=== PATIENT | female | born 1935 | race Caucasian/White ===

== ENCOUNTER → 2020-01-30 | Outpatient (CLI) | payer BC | LOC: M.ULTRA 07:13 | PROVIDERS: ATTEND Family Medicine | DX: K76.0 Fatty (change of) liver, not elsewhere classified (principal); K80.20 Calculus of gallbladder without cholecystitis without obstruction ==

== ENCOUNTER 2020-08-13 16:03 | Inpatient (IN) | payer BC ==
[~2020-08-13] VITALS: Ht 162.6 cm; Wt 59.1 kg
--- NOTE | ~2020-08-13 | OP ---
[facility] [address] [place] [address] OPERATIVE REPORT Name: RUSTY SOTOMAYOR Kwame Room: [address] IN M.R.#: [id number] Admission: 08/13/20 Attend Phys: Mihai Al Discharge: Date of : 35 Report #: [id number] THIS REPORT FOR: cc: Naun Hernandez Steve T. DO ~ Patterson, Jonathan D. MD DATE OF SERVICE: 08/15/2020 PREOPERATIVE DIAGNOSIS: Choledocholithiasis with acute cholecystitis. POSTOPERATIVE DIAGNOSIS: Choledocholithiasis with acute cholecystitis. OPERATION: Diagnostic laparoscopy. SURGEON: Efra Lawrence MD ANESTHESIA: General. ESTIMATED BLOOD LOSS: Minimal. SPECIMEN: None. DESCRIPTION OF PROCEDURE: After informed consent was obtained, the patient was brought to the operating room and placed supine. SCDs were placed and working, preoperative antibiotics were administered, general anesthesia was induced. The abdomen was prepped and draped in the usual sterile fashion. A 10 mm incision was made below the umbilicus. Fascia was incised and a trocar was placed. Pneumoperitoneum was established. Three right upper quadrant 5 mm ports were placed. The right upper quadrant was examined. The omentum was plastered to the gallbladder completely. I did use the LigaSure device to peel away some of the omentum. This revealed a very scarred and inflamed gallbladder. I attempted dissection in the triangle of [place]; however, this was so scarred that I did not think it would be safe to do so. Therefore, the gallbladder was left in place. The ports were removed under direct vision. The fascia was closed with a [id number] 0 Vicryl. Skin was closed with 4-0 Monocryl. Incisions were dressed with Steri-Strips. COMPLICATIONS: None. By: [id number] Lawrence MD /beverly
--- NOTE | ~2020-08-13 | PROC ---
[address] [address] PROCEDURE REPORT Name: RUSTY SOTOMAYOR Room: [address] IN M.R.#: [id number] Admission: 08/13/20 Attend Phys: Mihai Al Discharge: 08/17/20 Date of : 35 Report #: [id number] THIS REPORT FOR: cc: Naun Hernandez Steve T. DO ~ [facility],Medical Records Staff For GI report, please see the Provation report in Perceptive 7 content. By: [id number] Records Staff [facility] /PEGGY
[2020-08-13 16:22] VITALS: BP 137/84
[2020-08-13] MEDS ORDERED: LISINOPRIL-HCT1 EACH PO (16:26)
[2020-08-13] MEDS ORDERED: ZOCOR 10 MG TAB10 MG PO (16:26)
[2020-08-13 17:21] LABS: ABSOLUTE LYMPHOCYTES 0.8 thou/uL (0.8-5.3); ABSOLUTE NEUTROPHILS 10.8 thou/uL (1.6-8.1); RBC 3.64 mil/uL (4.20-5.00); RDW-CV 14.2 % (10.5-14.5)
[2020-08-13 17:26] LABS: ABSOLUTE BASOPHILS 0.1 thou/uL (0.0-0.2); ABSOLUTE EOSINOPHILS 0.1 thou/uL (0.0-0.7); ABSOLUTE MONOCYTES 1.4 thou/uL (0.0-1.2); BASOPHILS 0.8 %; EOSINOPHILS 0.4 %; HEMATOCRIT 34.3 % (37.0-47.0); HEMOGLOBIN 11.4 gm/dL (12.0-15.0); MCH 31.2 pg (26.0-34.0); MCHC 33.1 g/dL (28.0-37.0); MCV 94.2 fL (80.0-100.0); MONOCYTES 10.3 %; MPV 8.4 fl. (7.2-11.1); NUCLEATED RBCS 0 /100WBC; PLATELET COUNT* 338 thou/uL (150-400); POLYS 82.5 %; WBC 13.1 thou/uL (4.0-11.0)
[2020-08-13 17:27] LABS: CALCIUM 10.1 mg/dL (8.5-10.1); CREATININE 1.2 mg/dL (0.6-1.3); POTASSIUM 3.4 mmol/L (3.5-5.1)
[2020-08-13 17:31] LABS: APTT 25.6 Seconds (25.0-31.3); PROTIME 10.9 Seconds (9.20-11.50)
[2020-08-13 17:32] LABS: ALBUMIN 3.2 g/dL (3.4-5.0); DIRECT BILIRUBIN 5.6 mg/dL (<0.1-0.3); TOTAL BILIRUBIN 7.3 mg/dL (<0.1-1.0); TOTAL PROTEIN 7.9 g/dL (6.4-8.2)
[2020-08-13 21:00] VITALS: BP 122/56
[2020-08-13 21:59] LABS: URINE BLOOD TRACE (Negative); URINE CLARITY CLEAR; URINE COLOR DARK YELLOW; URINE GLUCOSE-RANDOM NEGATIVE (Negative); URINE KETONES 2+ (Negative); URINE LEUKOCYTES-REFLEX NEGATIVE (Negative); URINE PROTEIN 2+ (Negative); URINE SPECIFIC GRAVITY <= 1.005 (1.005-1.030)
[2020-08-13 22:01] LABS: ICTOTEST (BILI CONFIRMATORY) Positive (Negative); URINE BILIRUBIN 2+ (Negative); URINE NITRITE-REFLEX POSITIVE (Negative)
[2020-08-13 22:09] LABS: HYALINE CASTS 0-3 Few /LPF (None Seen); MUCUS None Seen strn/LPF (None Seen); SQUAMOUS 0-3 Few /LPF (0-3); URINE WBC-REFLEX 0-5 Rare /HPF (0-5)
[2020-08-13 22:10] LABS: BACTERIA-REFLEX 1-9 Few /HPF (None Seen); URINE RBC 0-2 Rare /HPF (0-2)
[2020-08-13 22:11] LABS: CRYSTALS None Seen /LPF (None Seen)
[2020-08-14 00:49] VITALS: BP 135/52
[2020-08-14 04:56] VITALS: BP 106/45
[2020-08-14 05:10] LABS: ABSOLUTE EOSINOPHILS 0.1 thou/uL (0.0-0.7); ABSOLUTE LYMPHOCYTES 0.8 thou/uL (0.8-5.3); ABSOLUTE MONOCYTES 1.2 thou/uL (0.0-1.2); ABSOLUTE NEUTROPHILS 6.8 thou/uL (1.6-8.1); BASOPHILS 0.3 %; EOSINOPHILS 0.7 %; HEMATOCRIT 26.7 % (37.0-47.0); LYMPHOCYTES 9.2 %; MCH 31.7 pg (26.0-34.0); MCHC 34.1 g/dL (28.0-37.0); MONOCYTES 13.6 %; MPV 7.7 fl. (7.2-11.1); NUCLEATED RBCS 0 /100WBC; POLYS 76.2 %; RBC 2.87 mil/uL (4.20-5.00); RDW-CV 13.9 % (10.5-14.5); WBC 8.9 thou/uL (4.0-11.0)
[2020-08-14 05:17] LABS: HEMOGLOBIN 9.1 gm/dL (12.0-15.0); PLATELET COUNT* 258 thou/uL (150-400)
[2020-08-14 05:30] LABS: ALBUMIN 2.4 g/dL (3.4-5.0); CREATININE 0.9 mg/dL (0.6-1.3); POTASSIUM 3.1 mmol/L (3.5-5.1); TOTAL BILIRUBIN 6.2 mg/dL (<0.1-1.0); TOTAL PROTEIN 6.1 g/dL (6.4-8.2)
[2020-08-14 05:41] LABS: CALCIUM 7.7 mg/dL (8.5-10.1)
[2020-08-14 05:50] LABS: % SATURATION 17 % (20-39); IRON 27 ug/dL (50-175)
[2020-08-14 06:46] LABS: ESR (SEDRATE) 110 mm/hr (0-30)
[2020-08-14 09:00] VITALS: BP 127/63
[2020-08-14 09:22] VITALS: BP 123/61
--- NOTE | 2020-08-14 09:40 | EKG ---
[place] [address] ELECTROCARDIOGRAM REPORT Name: RUSTY SOTOMAYOR Room: [place] [address] ADM IN ..#: [id number] Admission: 08/13/20 Attend Phys: Randal Nicole Discharge: Date of : 35 Date of Service: 08/13/20 1721 Report #: [id number] THIS REPORT FOR: //name// [facility] ED Test Date: 2020-08-13 Test Time: 17:21:50 Pat Name: RUSTY SOTOMAYOR Department: Room: [facility] Gender: F Home Care Specialist: AMERICO : 1935 Requested By: Laura Scott Order Number: [id number] MD: Reid Cuevas Measurements Intervals [place] Rate: 113 P: 58 VT: 140 QRS: -10 QRSD: 93 T: 42 QT: 301 QTc: 413 Interpretive Statements Sinus tachycardia Abnormal R-wave progression, early transition Possible inferior scar Baseline wander in lead(s) V4 No previous ECG available for comparison Electronically Signed On 08-14-2020 9:40:38 INTERPRETER DEAF by Reid Cuevas [email or web address] <ELECTRONICALLY SIGNED> By: Reid Cuevas MD, [facility] 08/14/20 0940 172 172 Reid Cuevas MD, [facility] /EPI
[2020-08-14 20:00] VITALS: BP 135/69
[2020-08-14 22:06] LABS: HEPATITIS B SURFACE AG Negative (Negative)
[2020-08-15] VITALS: BP 123/57
[2020-08-15 05:05] LABS: ABSOLUTE BASOPHILS 0.1 thou/uL (0.0-0.2); ABSOLUTE LYMPHOCYTES 0.7 thou/uL (0.8-5.3); ABSOLUTE MONOCYTES 0.7 thou/uL (0.0-1.2); ABSOLUTE NEUTROPHILS 6.1 thou/uL (1.6-8.1); BASOPHILS 0.7 %; EOSINOPHILS 0.1 %; HEMATOCRIT 26.1 % (37.0-47.0); LYMPHOCYTES 9.8 %; MCH 31.9 pg (26.0-34.0); MCHC 34.4 g/dL (28.0-37.0); MCV 92.8 fL (80.0-100.0); MONOCYTES 9.3 %; NUCLEATED RBCS 0 /100WBC; PLATELET COUNT* 294 thou/uL (150-400); POLYS 80.1 %; RBC 2.81 mil/uL (4.20-5.00); WBC 7.6 thou/uL (4.0-11.0)
[2020-08-15 06:02] LABS: ALBUMIN 2.4 g/dL (3.4-5.0); CALCIUM 8.5 mg/dL (8.5-10.1); POTASSIUM 3.2 mmol/L (3.5-5.1); TOTAL BILIRUBIN 3.6 mg/dL (<0.1-1.0); TOTAL PROTEIN 6.6 g/dL (6.4-8.2)
[2020-08-15 07:20] VITALS: BP 122/59
--- NOTE | 2020-08-15 13:14 | NUR ---
CM ATTEMPTED TO SPEAK TO THE PT TO DISCUSS CM ASSESSMENT. PT RESTING WITH EYES CLOSED SHE HAD JUST RETURNED FROM HER PROCEDURE. PT'S DTR AT THE BEDSIDE AND AGREES TO ASSIST WITH CM ASSESSMENT. PT NORMALLY INDEPENDENT WITH ADL'S, ACTIVE AND DRIVES. PT OWNS A WALKER, BUT DOES NOT USUALLY USE IT. PT HAS 0 HX OF HH OR SNF. CM WILL REMAIN AVAILABLE TO ASSIST AND FOLLOW NEEDED.
[2020-08-15 20:00] VITALS: BP 120/64
[2020-08-15 23:55] VITALS: BP 112/60
[2020-08-16 05:22] LABS: ABSOLUTE LYMPHOCYTES 1.1 thou/uL (0.8-5.3); ABSOLUTE MONOCYTES 0.9 thou/uL (0.0-1.2); ABSOLUTE NEUTROPHILS 6.3 thou/uL (1.6-8.1); BASOPHILS 0.5 %; EOSINOPHILS 0.2 %; HEMATOCRIT 25.4 % (37.0-47.0); HEMOGLOBIN 8.7 gm/dL (12.0-15.0); LYMPHOCYTES 13.7 %; MCH 31.9 pg (26.0-34.0); MCHC 34.2 g/dL (28.0-37.0); MCV 93.3 fL (80.0-100.0); MONOCYTES 10.3 %; MPV 8.1 fl. (7.2-11.1); NUCLEATED RBCS 0 /100WBC; PLATELET COUNT* 310 thou/uL (150-400); POLYS 75.3 %; RBC 2.72 mil/uL (4.20-5.00); RDW-CV 14.2 % (10.5-14.5); WBC 8.4 thou/uL (4.0-11.0)
[2020-08-16 05:50] LABS: ALBUMIN 2.2 g/dL (3.4-5.0); CALCIUM 7.8 mg/dL (8.5-10.1); TOTAL BILIRUBIN 1.5 mg/dL (<0.1-1.0); TOTAL PROTEIN 5.8 g/dL (6.4-8.2)
[2020-08-16 05:52] LABS: POTASSIUM 4.3 mmol/L (3.5-5.1)
[2020-08-16 07:30] VITALS: BP 129/69
[2020-08-16 17:12] VITALS: BP 142/70
[2020-08-16 20:00] VITALS: BP 134/75
[2020-08-17 04:00] VITALS: BP 134/69
[2020-08-17 05:53] LABS: ABSOLUTE EOSINOPHILS 0.1 thou/uL (0.0-0.7); ABSOLUTE LYMPHOCYTES 1.1 thou/uL (0.8-5.3); ABSOLUTE MONOCYTES 0.9 thou/uL (0.0-1.2); ABSOLUTE NEUTROPHILS 4.9 thou/uL (1.6-8.1); BASOPHILS 0.4 %; EOSINOPHILS 1.3 %; HEMATOCRIT 26.3 % (37.0-47.0); HEMOGLOBIN 8.9 gm/dL (12.0-15.0); LYMPHOCYTES 15.3 %; MCH 31.6 pg (26.0-34.0); MCHC 33.9 g/dL (28.0-37.0); MCV 93.1 fL (80.0-100.0); MONOCYTES 12.8 %; MPV 7.5 fl. (7.2-11.1); NUCLEATED RBCS 0 /100WBC; PLATELET COUNT* 323 thou/uL (150-400); POLYS 70.2 %; RBC 2.82 mil/uL (4.20-5.00); RDW-CV 14.4 % (10.5-14.5)
[2020-08-17 06:05] LABS: ALBUMIN 2.2 g/dL (3.4-5.0); CALCIUM 8.6 mg/dL (8.5-10.1); TOTAL BILIRUBIN 2.1 mg/dL (<0.1-1.0); TOTAL PROTEIN 5.6 g/dL (6.4-8.2)
[2020-08-17 07:55] VITALS: BP 130/73
[2020-08-17] MEDS ORDERED: AUGMENTIN 875-1 EACH PO (09:50)
--- NOTE | 2020-08-17 10:28 | NUR ---
ASSUMED CARE OF PT AT 0730. PT RESTING IN BED WAITING FOR BREAKFAST. A&0X4, DENIES ANY PAIN OR SHORTNESS OF BREATH AT THIS TIME. MED SURG STATUS. ON RA SAT UPPER 90'S. VSS. PT UP SBA TO BATHROOM. PT GOAL FOR TODAY IS DISCHARGE PLANNING TO HOME. AM ASSESSMENT CHARTED. MEDICATIONS PER MAR. PT REPOSITIONS SELF WITH REMINDERS. HOURLY ROUNDING OBSERVED. BED IN LOW POSITION. BED IN LOW POSITION. CALL LIGHT WITHIN REACH. WILL CONTINUE PLAN OF CARE.
[2020-08-17 11:14] VITALS: BP 130/73
[2020-08-17 12:03] VITALS: BP 130/73
--- NOTE | 2020-08-17 12:04 | NUR ---
CM SPOKE TO THE PT TO DISCUSS D/C PLANNING AND THE RECOMMENDATION OF HH AT D/C. PT IN AGREEMENT AND INFORMS THAT SHE HAS NO PREFERANCE OF HH COMPANY. PT ACCEPTS HH WITH [facility]. CM CALLED AND FAXED THE PT'S CLINICAL INFO AND D/C ORDERS TO [facility]. CM WILL REMAIN AVAILABLE TO ASSIST AND FOLLOW NEEDED. [facility] PHONE: [phone] FAX: [phone]
[2020-08-17 12:19] VITALS: BP 130/73
--- NOTE | 2020-08-17 12:38 | NUR ---
DISCHARGE ORDERS RECEIVED. DISCHARGE INSTRUCTIONS, CARE NOTES AND FOLLOW UP APPTS GIVEN TO PT. PT COMMUNICATES UNDERSTANDING OF DISCHARGE TEACHING. IV REMOVED. PT MED SURG STATUS. DAUGHTER AT BEDSIDE DURING EDUCATION. PT DISCHARGED WITH ALL BELONGINGS AND PAPERWORK VIA WHEELCHAIR WITH NURSING STAFF TO DAUGHTER PERSONAL VEHICLE. PT DISCHARGED TO HOME WITH HOME HEALTH TO FOLLOW UP WITH SURGERY IN 2 WEEKS.
--- NOTE | 2020-08-18 11:41 | CON ---
[facility] [address] [place] [address] CONSULTATION Name: CATALINA SOTOMAYORJOSE Puente Room: [address] IN M.R.#: [id number] Admission: 08/13/20 Attend Phys: Mihai lA Discharge: 08/17/20 Date of : 35 Report #: [id number] THIS REPORT FOR: cc: Naun Hernandez Steve T. DO ~ Randy Lehman DO DATE OF SERVICE: 08/14/2020 REFERRING PHYSICIAN: Randal Nicole DO REASON FOR CONSULTATION: Abdominal pain. IMPRESSION: 1. Right upper quadrant pain associated with obstructive jaundice -findings compatible with choledocholithiasis and cholecystitis. 2. Chronic dysphagia with intermittent reflux symptoms. 3. Mild anemia. RECOMMENDATIONS: 1. We will proceed with upper endoscopy and ERCP with biliary sphincterotomy, stone extraction and/or stent placement today. I have discussed the nature, risks, benefits and alternatives of the procedure with the patient as well as her daughter at the bedside and they are agreeable to the same. 2. Further recommendation will be made thereafter. HISTORY OF PRESENT ILLNESS: The patient is a very pleasant 85-year-old white female who came to the emergency room yesterday with complaints of upper abdominal pain, which has been ongoing for the last week or so. She also noted that her skin had become more yellow. She was diagnosed with gallstones last summer, but opted not to have surgical intervention for the same and when she came to the Emergency Room, she was found to have evidence for the same on CT scan with calcified stone noted within the distal biliary tree. She is now here for further evaluation. In addition to these issues, she had problem with chronic dysphagia and has to eat her food very slowly. She does have problems with chronic reflux, but nothing being severe. She denies any progressive dysphagia. She has never undergone previous endoscopic studies of her upper GI tract in the past. ALLERGIES: None. MEDICATIONS AT HOME: Include just lisinopril with hydrochlorothiazide [place] [address] CONSULTATION Name: RUSTY SOTOMAYOR Room: [address]#: [id number] Admission: 08/13/20 Attend Phys: Mihai Al Discharge: 08/17/20 Date of : 35 Report #: [id number] PAST MEDICAL HISTORY: Significant for hypertension and hyperlipidemia. She has had previous appendectomy, tonsillectomy, previous breast biopsies, which have been benign in the past. She has had left bone spur surgery. SOCIAL HISTORY: The patient does not smoke or drink. FAMILY HISTORY: Negative. PHYSICAL EXAMINATION: GENERAL: Pleasant 85-year-old white female who is awake and alert. CARDIOPULMONARY: Revealed a regular rate and rhythm. LUNGS: Clear. ABDOMEN: Soft. She was tender in the epigastric area. No rebound or guarding noted. LABORATORY TEST: From admission revealed a white count of 13.1, hemoglobin 11.4, platelet count 338,000, MCV is 94.2 and RDW is 14.2. Sodium 135, potassium 3.4, chloride 96, bicarbonate 28. Her BUN is 22, creatinine 1.24, GFR of 43. Her total bilirubin was 7.3, alkaline phosphatase 418, AST 49, ALT 83 and her albumin was 3.2. Her protime is 10.9 with an INR of 1.0. CT scan of the abdomen and pelvis was reviewed and revealed dilated biliary tree with gallstones within the gallbladder as well as dilated biliary tree and suspected stones in the distal bile duct as well. No other abnormalities were noted. DISCUSSION: At the present time, the patient has had some problems with symptomatic cholelithiasis and needs to have her gallbladder removed. She does need to have a preoperative ERCP and we will proceed with upper endoscopy as well to evaluate complaints of dysphagia. I have discussed this plan with the patient as well as her family and everyone is in agreement with the same. <ELECTRONICALLY SIGNED> By: Randy Lehman DO 08/18/20 1141 0656 [id number] Lehman DO /nt
== END 2020-08-17 12:40 | disposition home health service (06) | DRG 853 ==
LOC: M.ERS 16:03 → M.TBA-ER 18:29 → M.2W 08-14 14:00
PROVIDERS: Internal Medicine; Internal Medicine Gastroenterology; Physician Assistant; Surgery; ADMIT Internal Medicine; ATTEND Internal Medicine
DX: A41.9 Sepsis, unspecified organism (principal); E43 Unspecified severe protein-calorie malnutrition; E87.1 Hypo-osmolality and hyponatremia; D62 Acute posthemorrhagic anemia; N39.0 Urinary tract infection, site not specified; K80.43 Calculus of bile duct with acute cholecystitis with obstruction; D64.9 Anemia, unspecified; R13.10 Dysphagia, unspecified; K21.9 Gastro-esophageal reflux disease without esophagitis; K26.9 Duodenal ulcer, unspecified as acute or chronic, without hemorrhage or perforation; I10 Essential (primary) hypertension; E78.5 Hyperlipidemia, unspecified; E87.6 Hypokalemia; K22.2 Esophageal obstruction; Z20.822 Contact with and (suspected) exposure to COVID-19; Z90.49 Acquired absence of other specified parts of digestive tract; Z79.899 Other long term (current) drug therapy; Z68.22 Body mass index [BMI] 22.0-22.9, adult

== ENCOUNTER 2020-09-08 11:28 | Inpatient (IN) | payer BC ==
[2020-09-08] VITALS (11 sets, daily range): BP systolic 121–157; BP diastolic 59–76
[~2020-09-08] VITALS: Ht 162.6 cm; Wt 52.2 kg
[~2020-09-08 11:28] MED LIST: AUGMENTIN 875-1 EACH PO; LISINOPRIL-HCT1 EACH PO; ZOCOR 10 MG TAB10 MG PO
[2020-09-08 11:57] LABS: ABSOLUTE BASOPHILS 0.1 thou/uL (0.0-0.2); ABSOLUTE EOSINOPHILS 0.3 thou/uL (0.0-0.7); ABSOLUTE LYMPHOCYTES 0.8 thou/uL (0.8-5.3); ABSOLUTE MONOCYTES 0.7 thou/uL (0.0-1.2); ABSOLUTE NEUTROPHILS 7.1 thou/uL (1.6-8.1); BASOPHILS 0.6 %; EOSINOPHILS 3.2 %; HEMATOCRIT 32.7 % (37.0-47.0); HEMOGLOBIN 10.9 gm/dL (12.0-15.0); LYMPHOCYTES 8.7 %; MCH 30.4 pg (26.0-34.0); MCHC 33.3 g/dL (28.0-37.0); MCV 91.4 fL (80.0-100.0); MONOCYTES 8.2 %; MPV 7.8 fl. (7.2-11.1); NUCLEATED RBCS 0 /100WBC; PLATELET COUNT* 353 thou/uL (150-400); POLYS 79.3 %; RBC 3.58 mil/uL (4.20-5.00); RDW-CV 14.5 % (10.5-14.5)
[2020-09-08 12:09] LABS: CALCIUM 9.7 mg/dL (8.5-10.1); CREATININE 1.1 mg/dL (0.6-1.3); POTASSIUM 3.5 mmol/L (3.5-5.1)
[2020-09-08 12:13] LABS: ALBUMIN 3.1 g/dL (3.4-5.0); TOTAL BILIRUBIN 3.1 mg/dL (<0.1-1.0); TOTAL PROTEIN 7.9 g/dL (6.4-8.2)
[2020-09-08 13:06] LABS: URINE BLOOD NEGATIVE (Negative); URINE CLARITY CLEAR; URINE COLOR YELLOW; URINE GLUCOSE-RANDOM NEGATIVE (Negative); URINE KETONES NEGATIVE (Negative); URINE LEUKOCYTES-REFLEX NEGATIVE (Negative); URINE NITRITE-REFLEX NEGATIVE (Negative); URINE PROTEIN TRACE (Negative); URINE SPECIFIC GRAVITY <= 1.005 (1.005-1.030); URINE UROBILINOGEN 0.2 E.U./dl (0.2-1.0)
[2020-09-08 13:07] LABS: ICTOTEST (BILI CONFIRMATORY) Positive (Negative); URINE BILIRUBIN 2+ (Negative)
--- NOTE | 2020-09-08 17:53 | EKG ---
[place] [address] ELECTROCARDIOGRAM REPORT Name: RUSTY SOTOMAYOR Room: [address] ADM IN .R.#: [id number] Admission: 09/08/20 Attend Phys: Randal Nicole Discharge: Date of : 35 Date of Service: 09/08/20 1203 Report #: [id number] THIS REPORT FOR: //name// [facility] ED Test Date: 2020-09-08 Test Time: 12:03:56 Pat Name: RUSTY SOTOMAYOR Department: Room: [facility] Gender: F On Air Director: DSPortia : 1935 Requested By: Quinton Oconnor Order Number: [id number] MD: Jeff Carvajal Measurements Intervals [place] Rate: 94 P: 43 NV: 126 QRS: -10 QRSD: 75 T: 7 QT: 343 QTc: 429 Interpretive Statements Sinus rhythm Abnormal R-wave progression, early transition Inferior infarct, old, possible Left ventricular hypertrophy, by voltage Compared to ECG 08/13/2020 17:21:50 Left ventricular hypertrophy now present Sinus tachycardia no longer present Electronically Signed On 09-08-2020 17:53:05 ORCHID TRANSPLANTER by Jeff Carvajal [email or web address] <ELECTRONICALLY SIGNED> By: Jeff Carvajal MD, [facility] 09/08/20 1753 1203 120 Jeff Carvajal MD, [facility] /EPI
--- NOTE | 2020-09-08 19:33 | NUR ---
Pt arrived to floor around 1610. Pt remained A&O x4 for entire shift. Pt pleasant with staff. Vital signs stable. Pt complains of slight pain in abdomen at drain site. Small amout of clear pink drainage noted in drain. Pt used restroom and walked with steady gait. Bed in low position, call light within reach.
[2020-09-09 05:30] LABS: ALBUMIN 2.5 g/dL (3.4-5.0); CALCIUM 8.5 mg/dL (8.5-10.1); POTASSIUM 3.4 mmol/L (3.5-5.1); TOTAL BILIRUBIN 1.5 mg/dL (<0.1-1.0); TOTAL PROTEIN 6.4 g/dL (6.4-8.2)
--- NOTE | 2020-09-09 06:40 | NUR ---
PATIENT SLEPT PART OF THE NIGHT. IV REMAINS SALINE LOCKED. IV ANTIBIOTIC WAS GIVEN ORDERED. PATIENT WAS GIVEN TYLENOL ONCE FOR PAIN. WILL CONTINUE TO MONITOR.
[2020-09-09 08:10] VITALS: BP 126/64
--- NOTE | 2020-09-09 15:00 | NUR ---
SPOKE WITH PT.DISCUSSED POSSIBLY HOME TOMORROW PER WITH HH. PT.WAS AGREEABLE BUT SAID SHE DID NOT WANT THE ONE SHE HAD LAST TIME ([facility]). WILL FIND HH THAT CONTRACTS WITH HER INS. LIVES ALONE BUT DAUGHTER SUPPORTIVE.
[2020-09-09 15:59] VITALS: BP 122/61
[2020-09-09 20:00] VITALS: BP 134/62
[2020-09-09 20:15] VITALS: BP 134/62
[2020-09-10 04:38] LABS: CALCIUM 8.6 mg/dL (8.5-10.1); POTASSIUM 3.5 mmol/L (3.5-5.1)
[2020-09-10 05:09] LABS: HEMATOCRIT 29.8 % (37.0-47.0); HEMOGLOBIN 9.8 gm/dL (12.0-15.0); MCH 30.5 pg (26.0-34.0); MCHC 32.9 g/dL (28.0-37.0); MCV 92.9 fL (80.0-100.0); MPV 7.7 fl. (7.2-11.1); RBC 3.21 mil/uL (4.20-5.00); RDW-CV 14.9 % (10.5-14.5); WBC 5.4 thou/uL (4.0-11.0)
--- NOTE | 2020-09-10 05:52 | NUR ---
PATIENT RESTING IN BED. DRAIN TO ABDOMEN INTACT, DEPENDENT DRAINING WITH LITTLE OUT. FLUSHED DRAIN WITH 10MLS. IV TO RIGHT FOREARM, PATENT, DRESSING C/D/I. NO QUESTIONS OR CONCEERNS VOICED. WILL CONTINUE TO MONITOR.
--- NOTE | 2020-09-10 15:30 | NUR ---
PER ID,CX PENDING. IF NEG. CAN DISCHARGE HOME ON PO ANTIBIOTICS. WILL NEED HH FOR DRAIN CARE. SHE [facility]OSE [facility]. WILL FAX DISCHARGE ORDERS WHEN RECEIVED. WILL NEED FOLLOW UP CT ABD/PELVIS PRIOR TO DRAIN DC.
[2020-09-10 15:52] VITALS: BP 126/63
--- NOTE | 2020-09-10 19:29 | NUR ---
I ASSUMED CARE OF THE PATIENT AT 0700. SHE IS ALERT AND ORIENTED X4 AND IS UP WITH ASSIST OF 1. BED IS IN THE LOW LOCKED POSITION AND CALL LIGHT IS IN REACH. HOURLY ROUNDING IS COMPLETED AND PATIENT NEEDS ARE MET. PAIN IS MANAGED WITH PRN MEDS. SHE BATHED AND HAD A LINEN CHANGE. SHE WAS ABLE TO HAVE A BOWEL MOVEMENT. DRAIN BAG WAS FLUSHED WITH 10 ML NS AT 0800 AND 1600. SHE IS AWARE THAT THERAPY IS RECOMMENDING REHAB. WILL CONTINUE TO MONITOR.
[2020-09-10 20:27] VITALS: BP 144/71
--- NOTE | 2020-09-11 04:41 | NUR ---
PT UP STANDBY ASSIST, ROOM AIR, ALERT AND ORIENTED. SHE RECEIVED ALL MEDS SCHEDULED, NO REPORTS OF PAIN OR NAUSEA, CATHETER FLUSHES WELL. WILL CONTINUE TO MONITOR.
[2020-09-11 04:49] LABS: ABSOLUTE BASOPHILS 0.1 thou/uL (0.0-0.2); ABSOLUTE EOSINOPHILS 0.5 thou/uL (0.0-0.7); ABSOLUTE LYMPHOCYTES 1.2 thou/uL (0.8-5.3); ABSOLUTE MONOCYTES 0.7 thou/uL (0.0-1.2); ABSOLUTE NEUTROPHILS 4.4 thou/uL (1.6-8.1); EOSINOPHILS 7.2 %; HEMATOCRIT 29.6 % (37.0-47.0); HEMOGLOBIN 9.8 gm/dL (12.0-15.0); MCH 30.6 pg (26.0-34.0); MCHC 33.2 g/dL (28.0-37.0); MCV 92.1 fL (80.0-100.0); MONOCYTES 9.9 %; MPV 7.2 fl. (7.2-11.1); NUCLEATED RBCS 0 /100WBC; PLATELET COUNT* 356 thou/uL (150-400); POLYS 64.9 %; RBC 3.21 mil/uL (4.20-5.00); RDW-CV 14.7 % (10.5-14.5); WBC 6.8 thou/uL (4.0-11.0)
[2020-09-11 05:15] LABS: ALBUMIN 2.6 g/dL (3.4-5.0); CREATININE 0.9 mg/dL (0.6-1.3); POTASSIUM 3.9 mmol/L (3.5-5.1); TOTAL PROTEIN 6.4 g/dL (6.4-8.2)
[2020-09-11 07:15] VITALS: BP 124/57
[2020-09-11] MEDS ORDERED: ZOFRAN ODT4 MG PO ×2 (09:26→09:36)
[2020-09-11] MEDS ORDERED: AUGMENTIN 875-1 EACH PO (09:26)
[2020-09-11 09:33] VITALS: BP 124/57
[2020-09-11] MEDS ORDERED: TYLENOL EXTRA500 MG PO (09:36)
--- NOTE | 2020-09-11 11:38 | CON ---
[facility] [address] [place] [address] CONSULTATION Name: RUSTY SOTOMAYOR Room: [address] IN M.R.#: [id number] Admission: 09/08/20 Attend Phys: Mihai Al Discharge: Date of : 35 Report #: [id number] THIS REPORT FOR: cc: Naun Hernandez Steve T. DO ~ Samson Ervin MD DATE OF SERVICE: 09/09/2020 REASON FOR CONSULTATION: Intra-abdominal abscess. ASSESSMENT: Intra-abdominal abscess. RECOMMENDATIONS: 1. The patient already went to IR for placement of a drain before I saw her. 2. She will need drain care. 3. She will need repeat CT scan before removal of drain. 4. Trend LFTs. 5. Antibiotics. 6. Diet as tolerated. HISTORY OF PRESENT ILLNESS: The patient is an 85-year-old female status post ERCP for choledocholithiasis, an attempted laparoscopic cholecystectomy, which was aborted. She presents to the hospital again with jaundice. General Surgery was consulted for evaluation. PAST MEDICAL HISTORY: 1. Hypertension. 2. Choledocholithiasis. PAST SURGICAL HISTORY: 1. Attempted laparoscopic cholecystectomy. 2. Appendectomy. 3. Tonsillectomy. 4. Breast biopsy x 2. 5. Left knee. SOCIAL HISTORY: Denies alcohol or tobacco use. FAMILY HISTORY: Denies coagulopathy or difficulty with anesthesia. REVIEW OF SYSTEMS: CONSTITUTIONAL: No fever. No chills. HEENT: Denies blurring of vision, double vision, headaches, hearing loss, sinus drainage or sore throat. [address] [address] CONSULTATION Name: RUSTY SOTOMAYOR Room: [address] IN [facility].#: [id number] Admission: 09/08/20 Attend Phys: Mihai Al Discharge: Date of : 35 Report #: [id number] CARDIOVASCULAR: Denies chest pain, palpitations, orthopnea or paroxysmal nocturnal dyspnea. RESPIRATORY: Denies cough, wheezing, hemoptysis, or shortness of air. GASTROINTESTINAL: See above and below. GENITOURINARY: Denies dysuria or hematuria or kidney stones. No urinary frequency, urgency or incontinence. MUSCULOSKELETAL: No joint pain. No muscle pain. NEUROLOGICAL: Denies tremor, stroke or seizure. HEMATOLOGIC/LYMPHATICS: Denies easy bruising, easy bleeding or enlarged lymph nodes. SKIN: No rash or ulceration. ENDOCRINE: No heat or cold intolerance. PSYCHIATRIC: Denies depression, anxiety, or schizophrenia. PHYSICAL EXAMINATION: VITAL SIGNS: Temperature 36.7, pulse 72, respiratory rate 17, blood pressure 122/61, pulse ox 97% on room air. GENERAL: No apparent distress, alert and oriented x3. HEENT: PERRLA, EOMI, MMM, NCAT. NECK: Supple. No LAD. CARDIOVASCULAR: Regular rhythm and rate. Hemodynamically stable. Normal capillary refill. PULMONARY: Nonlabored. Clear to auscultation bilaterally. ABDOMEN: Soft, nontender, nondistended, no guarding, rebound, or rigidity. The drain in the right upper quadrant with yellow, clear fluid. EXTREMITIES: Calves soft, nontender, no edema. SKIN: No rashes or bruises. PSYCHIATRIC: Normal mood and affect. NEUROLOGICAL: Grossly intact. CN II-XII grossly intact. MUSCULOSKELETAL: 5/5 strength in upper extremities and lower extremities bilaterally LYMPHATICS: No cervical, inguinal, or supraclavicular lymphadenopathy. LABORATORY DATA: 1. White blood count 9, hemoglobin 10.9, platelets 353. 2. Sodium 138, potassium 3.4, creatinine 1, total bilirubin 1.5, AST 23, ALT 63, alkaline phosphatase 421. Albumin 2.5, lipase 299. IMAGING: CT abdomen and pelvis. Impression: 1. Extensive cholelithiasis. 2. Interval development of 4 cm peripheral enhancing gas containing fluid collection located inferior medial to the gallbladder. Appearance is consistent with a small abscess. This is immediately abutting [place] [address] CONSULTATION Name: RUSTY SOTOMAYOR Room: [address] IN [facility].#: [id number] Admission: 09/08/20 Attend Phys: Mihai Al Discharge: Date of : 35 Report #: [id number] of the duodenum. 3. Persistent mild intrahepatic biliary ductal prominence, although this appears less severe as compared with the prior study from 08/2020. 4. Punctate nonobstructing left renal calculus. <ELECTRONICALLY SIGNED> By: Samson Ervin MD 09/11/20 1138 1630 2100Clmarcial Ervin MD /nt
[2020-09-11 13:11] VITALS: BP 124/57
[2020-09-11 13:41] VITALS: BP 124/57
--- NOTE | 2020-09-11 14:00 | NUR ---
PT.DISCHARGING TODAY WITH HOME HEALTH. SENT REFERRAL TO [facility] . MICHEL CALLED AND SAID THEY CAN ACCEPT.PT. FAXED DISCHARGE ORDERS TO [phone]. FOR NURSING. NURSING TO INSTRUCT PT.HOW TO EMPY DRAIN PRIOR TO DISCHARGE AND WILL SEND HER HOME WITH SOME NS FLUSHES. ALL INFORMATION PUT ON DISCHARGE INSTRUCTIONS. DAUGHTER HERE TO TRANSPORT HOME.
[2020-09-11 14:16] VITALS: BP 124/57
--- NOTE | 2020-09-11 14:38 | NUR ---
PT GIVEN DISCHARGE INFORMATION, CARE NOTES, AND PRESCRIPTIONS. IV REMOVED. EDUCATION GIVEN ON FLUSHING DRAIN. PT LEFT VIA WHEELCHAIR WITH NURSING STAFF TO HOME WITH HOME HEALTH.
== END 2020-09-11 15:02 | disposition home health service (06) | DRG 862 ==
LOC: M.ERS 11:28 → M.ORTHSURG 13:57 → M.TBA-ER 13:57 → M.ORTHSURG 16:07
PROVIDERS: Family Medicine; ADMIT Internal Medicine; ATTEND Internal Medicine
PROC: 0W9G30Z Drainage of Peritoneal Cavity with Drainage Device, Percutaneous Approach (ICD-10-PCS; principal; 2020-09-08)
DX: T81.43XA Infection following a procedure, organ and space surgical site, initial encounter (principal); E43 Unspecified severe protein-calorie malnutrition; K65.1 Peritoneal abscess; Z68.1 Body mass index [BMI] 19.9 or less, adult; K80.71 Calculus of gallbladder and bile duct without cholecystitis with obstruction; Z20.822 Contact with and (suspected) exposure to COVID-19; I10 Essential (primary) hypertension; E80.6 Other disorders of bilirubin metabolism; R74.01 Elevation of levels of liver transaminase levels; K22.2 Esophageal obstruction; Z90.49 Acquired absence of other specified parts of digestive tract; Y83.8 Other surgical procedures as the cause of abnormal reaction of the patient, or of later complication, without mention of misadventure at the time of the procedure; Y92.89 Other specified places as the place of occurrence of the external cause

== ENCOUNTER 2021-01-30 13:42 | Emergency (ER) | payer BC ==
[~2021-01-30] VITALS: Ht 162.6 cm; Wt 54.0 kg
[~2021-01-30 13:42] MED LIST changes: +TYLENOL EXTRA500 MG PO; +ZOFRAN ODT4 MG PO
[2021-01-30 15:44] VITALS: BP 148/77
== END 2021-01-30 15:45 | disposition home or self-care (01) ==
LOC: M.ERS 13:42
DX: S09.90XA Unspecified injury of head, initial encounter (principal); W17.89XA Other fall from one level to another, initial encounter; I10 Essential (primary) hypertension; Z79.899 Other long term (current) drug therapy; Z90.89 Acquired absence of other organs; Y93.89 Activity, other specified; Y92.89 Other specified places as the place of occurrence of the external cause; Y99.8 Other external cause status